=== PATIENT | male | born 1955 | race Caucasian/White ===

== ENCOUNTER 2022-05-06 10:40 | Emergency (ER) | payer OTHER ==
[2022-05-06 10:51] VITALS: BP 136/94; PULSE 96; RESP 18; TEMP 98; BMI 23.1
[2022-05-06] MEDS ORDERED: KETOROLAC TROMETHAMINE 60 MG/2 ML VIAL IM ONE (10:53)
[2022-05-06] MEDS ORDERED: CYCLOBENZAPRINE HCL 10 MG TABLET (FP) PO ONE (10:53)
[2022-05-06] MEDS ORDERED: CYCLOBENZAPRINE HCL 5 MG TABLET ONE (10:59)
[2022-05-06] MEDS ORDERED: KETOROLAC TROMETHAMINE 30 MG/1 ML VIAL ONE (10:59)
[2022-05-06] MEDS ORDERED: LIDOCAINE 5% TOPICAL PATCH TP ONE (13:04)
[2022-05-06] MEDS ORDERED: LIDOCAINE 5% TOPICAL PATCH ONE (13:11)
[2022-05-06] MEDS ORDERED: LIDOCAINE PATCH REMOVAL MC SCH (22:00)
== END 2022-05-06 13:29 | disposition home or self-care (01) ==
LOC: FER 10:40
PROC: 3E0233Z Introduction of Anti-inflammatory into Muscle, Percutaneous Approach (ICD-10-PCS; principal; 2022-05-06)
DX: M79.604 Pain in right leg (principal); M71.21 Synovial cyst of popliteal space [Baker], right knee
CPT/HCPCS: 73562-TC-RT-FY; 73590-TC-RT-FY; 93971-TC; 99285-25